=== PATIENT | male | born 1995 | race Caucasian/White ===

== ENCOUNTER 2019-01-04 13:01 | Emergency (ER) | payer OTHER ==
[2019-01-04 14:43] LABS: URINE BLOOD (Dip) POC Trace-intact (NEGATIVE); URINE KETONES (Dip) POC Negative (NEGATIVE); URINE LEUKOCYTE EST (Dip) POC Negative (NEGATIVE); URINE NITRITE (Dip) POC Negative (NEGATIVE); URINE TOTAL PROTEIN POC Negative (NEGATIVE)
[2019-01-04] MEDS ORDERED: LIDOCAINE 1% (MDV) 10 ML INJ INJ (15:27)
== END 2019-01-04 16:05 | disposition home or self-care (01) ==
LOC: FTE 13:01
DX: B37.42 Candidal balanitis (principal); L60.0 Ingrowing nail
CPT/HCPCS: 81003; 99283